=== PATIENT | female | born 1945 | race African-American/Black ===

== ENCOUNTER 2016-12-22 03:21 | Emergency (ER) | payer MEDICARE, OTHER ==
[~2016-12-22] VITALS: Ht 152.4 cm; Wt 56.2 kg
[2016-12-22 03:30] VITALS: BP 153/90
[2016-12-22] MEDS ORDERED: methylPREDNISolone SOD SUCC PF 125 MG/2 ML VIAL. IM ONE (03:45)
[2016-12-22] MEDS ORDERED: predniSONE 20 MG TABLET PO ONE (03:45)
[2016-12-22] MEDS ORDERED: FAMOTIDINE 20 MG TABLET PO ONE (03:45)
--- NOTE | 2016-12-22 03:45 | PHYS DOC ---
General Chief Complaint: allergic reaction Stated Complaint: RASH Time Seen by MD: 03:41 Source: patient Exam Limitations: no limitations (she taking medication at midnight at midnight ) Problems: History of Present Illness Initial Comments Patient is a 71-year-old female who comes to the ED complaining of an itchy red rash. Patient states that at 12:20 AM she thinks she may have taken 3 of her irbesartan 150 mg. After she took it she became concerned that her blood pressure might raise so she ate some noodles with extra salt. 1 hour ago she developed whole body itching and redness but denies new cough hoarseness dyspnea on exertion face or throat swelling. She denies other new exposures and is requesting a quick medication treatment as she intends to work tomorrow. Other than the rash and itching she feels well states she is normally healthy. Timing/Duration: 1 hour Severity: moderate Modifying Factors: improves with cold therapy, worse with medication Associated Symptoms: rash Allergies: Coded Allergies: Penicillins (Verified Allergy, Intermediate, Hives, 12/22/16) amoxicillin (Verified Allergy, Intermediate, Hives, 12/22/16) Past Medical History Medical History: other (bronchitis, hypertension, kidney stones) Surgical History: noncontributory ( section, lithotripsy) Social History Smoker: non-smoker Alcohol: none Drugs: none Review of Systems Constitutional: denies chills, denies diaphoresis, denies fever, denies malaise EENTM: see HPI, denies throat pain, denies throat swelling, denies mouth pain, denies mouth swelling Respiratory: denies cough, denies shortness of breath, denies stridor, denies wheezing Cardiovascular: denies chest pain, denies palpitations, denies syncope Gastrointestinal: denies diarrhea, denies nausea, denies vomiting Musculoskeletal: denies back pain, denies joint swelling, denies neck pain Skin: see HPI Psychiatric/Neurological: denies headache, denies numbness, denies paresthesia Physical Exam General Appearance: WD/WN, no apparent distress Eyes: bilateral eye normal inspection, bilateral eye PERRL, bilateral eye EOMI Ear, Nose, Throat: hearing grossly normal, normal ENT inspection, normal pharynx (no swelling noted airway is intact) Neck: non-tender, supple Respiratory: lungs clear, normal breath sounds, no respiratory distress Cardiovascular: normal peripheral pulses, regular rate, rhythm Back: no CVA tenderness, no vertebral tenderness Extremities: non-tender, normal inspection 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 I discussed close PCP follow-up and possible testing to determine exactly what she is allergic to. Blood pressure remained stable it is unlikely she took 3 of her antihypertensive medications. She requests to be discharged as soon as she is treated states she will come back if she is not improving. Departure Time of Disposition: 03:43 Disposition: HOME, SELF-CARE Diagnosis: allergic rash Condition: STABLE Patient Instructions: Allergy Skin Testing Additional Instructions: Discontinue any new exposures or medication she is taking may be causing her allergic reaction. Recommended that he not work today but stayed home and rest and allow your body to heal and the medications to work. Remain in a cool temperature environment for optimal symptom control. Take [id number] Pepcid 20 mg twice daily as well as Benadryl 25 mg every 6 hours while taking prednisone. Prescription: Prednisone 20 mg one by mouth twice a day #10 Follow-up with your doctor on Saturday for recheck. Return to the ED with new or changing symptoms. SETH GOLDEN DO Dec 22, 2016 03:45
[2016-12-22] MEDS ORDERED: IRBE300T3 PO (03:48)
[2016-12-22] MEDS ORDERED: MULT-98 PO (03:49)
[2016-12-22] MEDS ORDERED: predniSONE 20 MG TABLET ONE (03:51)
[2016-12-22] MEDS ORDERED: FAMOTIDINE 20 MG TABLET ONE (03:51)
[2016-12-22] MEDS ORDERED: methylPREDNISolone SOD SUCC PF 125 MG/2 ML VIAL. ONE (03:52)
== END 2016-12-22 04:03 | disposition home or self-care (01) ==
LOC: ER 03:21
DX: T46.5X5A Adverse effect of other antihypertensive drugs, initial encounter (principal); Z87.442 Personal history of urinary calculi; I10 Essential (primary) hypertension; Z88.0 Allergy status to penicillin; Z88.1 Allergy status to other antibiotic agents; Y92.89 Other specified places as the place of occurrence of the external cause
CPT/HCPCS: 96372; 99283; J2930; J7512

== ENCOUNTER 2021-02-27 22:27 | Inpatient (IN) | payer MEDICARE, OTHER ==
[~2021-02-27] VITALS: Ht 149.9 cm; Wt 56.0 kg
[~2021-02-27 22:27] MED LIST: IRBE300T23 PO; MULT-98 PO
[2021-02-27] MEDS ORDERED: IV NORMAL SALINE 1,000ML 1,000 ML IV ONE (22:45)
[2021-02-27] MEDS ORDERED: ACETAMINOPHEN 500 MG TABLET PO ONE ×2 (22:45→22:46)
[2021-02-27] MEDS ORDERED: IV RINGERS SOLUTION,LACTATED 1,000 ML IV ONE (22:45)
--- NOTE | 2021-02-27 22:59 | PHYS DOC ---
Past History Past Medical History: Bronchitis, Hypertension, Kidney Stones Past Surgical History: , Other Alcohol Use: Rarely Drug Use: None General Adult HPI: HPI: Patient is a 76-year-old female brought in by son for altered mental status. Patient states that she was fine 2 days ago yesterday seem to right and was alert and cognizant but had decreased p.o. intake due to appetite. Denies any cough vomiting or diarrhea. Has a history of sepsis secondary to urinary tract infection. Has a history of a "throat narrowing" and hypertension. Has not had her Covid vaccines. No known sick contacts. Patient had no complaints about any pain or illness. Only more lethargic this evening. Review of Systems: Review of Systems: All other systems within normal limits except for as noted in the HPI Current Medications: Current Meds: Current Medications Medications (Trade) Dose Ordered Sig/Mandi Start Time Stop Time Status Last Admin Dose Admin Acetaminophen (Tylenol) 1,000 mg 1X ONCE 02/27/21 22:45 02/27/21 22:46 UNV Lactated Ringer's 1,000 ml @ 1,000 mls/hr 1X ONCE 02/27/21 22:45 02/27/21 23:44 UNV Sodium Chloride 1,000 ml @ 1,000 mls/hr 1X ONCE 02/27/21 22:45 02/27/21 23:44 UNV Allergies: Allergies: Allergies Coded Allergies Type Severity Reaction Last Updated Verified Penicillins Allergy Intermediate Hives 12/22/16 Yes amoxicillin Allergy Intermediate Hives 12/22/16 Yes Physical Exam: PE: Constitutional: Well developed, well nourished, no acute distress, non-toxic appearance. [] HENT: Normocephalic, atraumatic, bilateral external ears normal, nose normal. [] Eyes: PERRLA, conjunctiva normal, no discharge. [] Neck: No rigidity, supple, no stridor. [] Cardiovascular: Tachycardic, regular rhythm, brisk cap refill [] Lungs & Thorax: Non labored symmetric respirations, no tachypnea or respiratory distress [] Abdomen: Soft, nondistended, no tenderness palpation. Skin: Warm, dry, no erythema, no rash. [] Back: Unremarkable Extremities: No deformities, range of motion grossly intact, no lower extremity edema [] Neurologic: Alert and oriented X 3, no focal deficits noted. [] Psychologic: Affect normal, judgement normal, mood normal. [] EKG: EKG: Sinus tachycardia, heart rate 110 bpm, normal axis, no ST elevation or depression, no ectopy. [] Radiology/Procedures: Radiology/Procedures: [] Radiology first not crossing over but able to print off from the browser. Chest x-ray shows no infiltrates effusion, normal cardiac silhouette. CT head shows no anterior cranial findings mild atrophy with chronic microangiopathic white matter change. CT chest abdomen pelvis with contrast shows pyelonephritis of the right greater than left. No hydronephrosis. Wall thickening of the right transverse colon indicates colitis. Infectious or inflammatory etiology are common in this distribution. Cholelithiasis. Heart Score: C/O Chest Pain: No HEART Score for Chest Pain: HEART Score for Chest Pain Response (Comments) Value History Slighlty/Non-Suspicious 0 ECG Normal 0 Age > 65 2 Risk Factors 1 or 2 Risk Factors 1 Troponin < Normal Limit 0 Total 3 Risk Factors: Risk Factors: DM, Current or recent (<one month) smoker, HTN, HLP, family history of CAD, obesity. Risk Scores: Score 0 - 3: 2.5% MACE over next 6 weeks - Discharge Home Score 4 - 6: 20.3% MACE over next 6 weeks - Admit for Clinical Observation Score 7 - 10: 72.7% MACE over next 6 weeks - Early Invasive Strategies Course & Med Decision Making: Course & Med Decision Making Pertinent Labs and Imaging studies reviewed. (See chart for details) [] Dragon Disclaimer: Dragon Disclaimer: This electronic medical record was generated, in whole or in part, using a voice recognition dictation system. Departure Departure: Impression: Primary Impression: Pyelonephritis Additional Impression: Hypophosphatemia Disposition: ADMITTED INPATIENT Admitting Physician: Tremayne Bettencourt Condition: IMPROVED Referrals: TAVON MCKEON (PCP) ORVILLE MILLER MD Feb 27, 2021 22:59
[2021-02-27 23:16] LABS: BASO # 0.1 x10^3/uL (0.0-0.2); BASO % 1 % (0-3); EOS % 0 % (0-3); HEMATOCRIT 37.8 % (36.0-47.0); LYMPH # 2.5 x10^3/uL (1.0-4.8); LYMPH % 26 % (24-48); MEAN CORPUSCULAR HEMOGLOBIN 32 pg (25-35); MEAN CORPUSCULAR HGB CONC 34 g/dL (31-37); MEAN CORPUSCULAR VOLUME 95 fL (79-100); MONO # 0.3 x10^3/uL (0.0-1.1); MONO % 3 % (0-9); NEUT # 6.7 x10^3uL (1.8-7.7); NEUT % 70 % (31-73); PLATELET COUNT 192 x10^3/uL (140-400); RED BLOOD COUNT 3.99 x10^6/uL (3.50-5.40); RED CELL DISTRIBUTION WIDTH 12.9 % (11.5-14.5); WHITE BLOOD COUNT 9.6 x10^3/uL (4.0-11.0)
[2021-02-27 23:21] LABS: CALCIUM 9.3 mg/dL (8.5-10.1); GFR 65.1; POTASSIUM 3.1 mmol/L (3.5-5.1)
[2021-02-27 23:36] LABS: ALBUMIN 3.2 g/dL (3.4-5.0); ALBUMIN/GLOBULIN RATIO 0.8 (1.0-1.7); MAGNESIUM 1.9 mg/dL (1.8-2.4); PHOSPHORUS 1.4 mg/dL (2.6-4.7); TOTAL PROTEIN 7.3 g/dL (6.4-8.2)
[2021-02-27 23:40] LABS: INFLUENZA A PATIENT NEGATIVE (NEGATIVE); INFLUENZA B PATIENT NEGATIVE (NEGATIVE)
[2021-02-28] MEDS ORDERED: IOHEXOL 300 MG/ML 75 ML VIAL. IV ONE
[2021-02-28] MEDS ORDERED: SODIUM PHOSPHATE 20 MMOL in IV DEXTROSE 5% 250 ML IV ONE
[2021-02-28 00:12] LABS: CLARITY,URINE HAZY; COLOR,URINE ORANGE
[2021-02-28 00:13] LABS: BACTERIA,URINE MANY /HPF (0-FEW); RBC,URINE 0 /HPF (0-2); SQUAMOUS EPITHELIAL CELL,UR OCC /LPF
[2021-02-28] MEDS ORDERED: CONTRAST GIVEN. MC PRN (00:15)
[2021-02-28] MEDS ORDERED: POTASSIUM & SODIUM PHOSPHATES PACKET. PO ONE (01:30)
[2021-02-28] MEDS ORDERED: cefTRIAXone SODIUM 1 GM VIAL ONE (02:24)
[2021-02-28] MEDS ORDERED: IV NORMAL SALINE 50ML 50 ML ONE (02:24)
[2021-02-28] MEDS ORDERED: IV RINGERS SOLUTION,LACTATED 1,000 ML IV ONE (02:45)
[2021-02-28] MEDS ORDERED: ACETAMINOPHEN 325 MG TABLET PO PRN (04:45)
[2021-02-28] MEDS ORDERED: ONDANSETRON PF 4 MG/2 ML VIAL. IVP PRN (04:45)
[2021-02-28] MEDS ORDERED: MORPHINE SULFATE 2 MG/ML DISP.SYRIN. IVP PRN (04:45)
[2021-02-28 07:00] VITALS: BP 92/50
[2021-02-28 11:37] VITALS: BP 154/80
--- NOTE | 2021-02-28 11:45 | NUR ---
ADMISSION Pt admitted today by Dr. Bettencourt. Admission complete. Pt resting comfortably at this time. Bill, pts son, and pt to complete DPOA paperwork with CM. Will continue to monitor. JOSUE RN
[2021-02-28] MEDS: IV NORMAL SALINE 1,000ML 1,000 ML IV SCH (12:15)
--- NOTE | 2021-02-28 14:01 | RAD ---
EXAM: CT OF THE CHEST, ABDOMEN AND PELVIS WITH CONTRAST. HISTORY: Elevated liver enzymes, urinary tract infection, sepsis. TECHNIQUE: Computed tomography of the chest, abdomen and pelvis was performed after the intravenous a dministration of iodinated contrast. One or more of the following individualized dose reduction techn iques were utilized for this examination: 1. Automated exposure control. 2. Adjustment of the mA and/or kV according to patient size. 3. Use of iterative reconstruction technique. COMPARISON: None. FINDINGS: Bone windows reveal no suspicious lesions. There are no pathologically enlarged mediastinal or axillary lymph nodes. There is no pleural or patrice cardial effusion. The heart is not enlarged. There are atherosclerotic calcifications of the coronary arteries. Lung windows reveal no acute infiltrates. There is mild atelectasis or scarring in the left greater t pace right bases. A gallstone is noted. There is no pericholecystic inflammation. The liver, spleen, adrenal glands and pancreas are unremarkable. There are no pathologically enlarged lymph nodes. Hypoperfusion of the right kidney is consistent with pyelonephritis. Similar minimal changes are susp ected on the left. There is urothelial thickening along both ureters and bladder. The bladder is deco mpressed by a Billy catheter. A right renal cyst measures 2.3 cm. A left renal calculus measures 3 mm . A myometrial fibroid on the left measures 1.5 cm. There is wall thickening throughout the right and t ransverse colon. Diffuse colonic diverticulosis is moderate. There is no small bowel obstruction. IMPRESSION: 1. Pyelonephritis on the right greater than left. No hydronephrosis. 2. Wall thickening of the right and transverse colon indicates colitis. Infectious, inflammatory or i schemic etiologies are possible in this distribution. 3. Cholelithiasis. Electronically signed by: Kaya Harrington MD (02/28/2021 1:37 AM) [facility]
--- NOTE | 2021-02-28 14:01 | HP ---
ADMIT DATE: 02/28/2021 ATTENDING PHYSICIAN: Dr. Bettencourt. CHIEF COMPLAINT: Weakness. HISTORY OF PRESENT ILLNESS: The patient is a pleasant 76-year-old female who is admitted through the ED. She has been sick for the last 2 days, a bit confused. Son brought her in. She has had some chills. No COVID vaccine. She has had some hypotension. Workup in the ED showed total body CT scan, which showed evidence of right-sided pyelonephritis. She was started on fluids and antibiotics. By the time I saw her, she was much more alert and talking, not much of an appetite, but she was comfortable. PAST MEDICAL HISTORY: Significant for hypertension, bronchitis, kidney stones and . ALLERGIES: SHE IS ALLERGIC TO PENICILLIN AND AMOXICILLIN, CAUSING RASH. CURRENT MEDICATIONS: Were reviewed. She takes irbesartan 300 mg daily and multivitamin. SOCIAL HISTORY: She is a nonsmoker, nondrinker. FAMILY HISTORY: Her mom lived to age 100. Father at age 75 of heart disease. REVIEW OF SYSTEMS: Significant for the localized symptoms. No fevers, chills, COVID exposure. All other systems reviewed and turned to be negative. PHYSICAL EXAMINATION: GENERAL: When I saw her, this is a pleasant elderly female. INITIAL VITAL SIGNS: Showed a blood pressure of 92/50, pulse is 86 and regular, temperature 99.2 degrees Fahrenheit, oxygen saturation 97% on room air. HEENT: Head is without trauma. Pupils are reactive. Sclerae nonicteric. Oropharynx clear. NECK: Supple, no bruits. LUNGS: Good breath sounds. CARDIOVASCULAR: Shows regular heart tones. No gallop. ABDOMEN: Soft. EXTREMITIES: Show without edema. There is minimal right flank tenderness. NEUROLOGIC: Focally intact. PERTINENT LABORATORY STUDIES: Blood and urine cultures have been drawn and are pending. Hemoglobin 13.0 g/dL with a white count of 9600. Sodium is 132, potassium 3.1 mEq. Transaminases elevated. Cardiac enzymes negative for coronary ischemia. Nonfasting blood sugar 184. ASSESSMENT: 1. A 76-year-old female with acute pyelonephritis. 2. History of hypertension, currently hypotensive. 3. Mild dehydration. PLAN: 1. Admit to the inpatient unit. 2. Intravenous antibiotics have been started. 3. Gentle IV hydration. 4. I have held her blood pressure meds for now. 5. Diet as tolerated. 6. Serial chemistries. 7. Potassium supplementation. BLAYNE DR: Chelita TID: [id number] CC: WILLIAM LEBRON
--- NOTE | 2021-02-28 14:01 | RAD ---
EXAM: CT HEAD WITHOUT CONTRAST. HISTORY: Altered mental status. TECHNIQUE: Computed tomography of the head was performed without intravenous contrast. One or more of the following individualized dose reduction techniques were utilized for this examination: 1. Automated exposure control. 2. Adjustment of the mA and/or kV according to patient size. 3. Use of iterative reconstruction technique. COMPARISON: None. FINDINGS: There is no intracranial hemorrhage. Hypoattenuation within the periventricular white matte r indicates mild chronic microangiopathic change. Prominence of the lateral ventricles and hemispheri c sulci indicates mild atrophy. The visualized paranasal sinuses appear clear. The orbits are unremarkable. The temporal bones are un remarkable. The calvarium reveals no suspicious lesions. IMPRESSION: 1. No acute intracranial findings. Mild atrophy and chronic microangiopathic white matter change. Electronically signed by: Kaya Harrington MD (02/27/2021 11:32 PM) [facility]
--- NOTE | 2021-02-28 14:01 | RAD ---
EXAM: CHEST ONE VIEW. HISTORY: Sepsis. COMPARISON: None. FINDINGS: A frontal view of the chest is obtained. There are no confluent infiltrates. There is no pneumothorax or pleural effusion. The heart is not en larged. There are atherosclerotic calcifications of the aorta. IMPRESSION: 1. No confluent infiltrates. Electronically signed by: Kaya Harrington MD (02/27/2021 11:33 PM) [facility]
--- NOTE | 2021-02-28 14:01 | EKG ---
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
[2021-02-28 15:08] VITALS: BP 101/63
[2021-02-28 19:00] VITALS: BP 114/72
[2021-02-28] MEDS: POTASSIUM CHLORIDE 20 MEQ TABLET.ER. PO SCH (20:45)
[2021-02-28 23:00] VITALS: BP 97/57
[2021-03-01] MEDS: IV NORMAL SALINE 1,000ML 1,000 ML IV SCH ×2 (03:01→16:39)
[2021-03-01 05:45] VITALS: BP 143/107
[2021-03-01 06:13] LABS: BASO % 1 % (0-3); EOS # 0.1 x10^3/uL (0.0-0.7); EOS % 1 % (0-3); HEMATOCRIT 32.2 % (36.0-47.0); HEMOGLOBIN 10.8 g/dL (12.0-15.5); LYMPH # 1.1 x10^3/uL (1.0-4.8); LYMPH % 13 % (24-48); MEAN CORPUSCULAR HEMOGLOBIN 32 pg (25-35); MEAN CORPUSCULAR HGB CONC 34 g/dL (31-37); MEAN CORPUSCULAR VOLUME 96 fL (79-100); MONO # 0.9 x10^3/uL (0.0-1.1); MONO % 10 % (0-9); NEUT # 6.5 x10^3uL (1.8-7.7); NEUT % 76 % (31-73); PLATELET COUNT 159 x10^3/uL (140-400); RED BLOOD COUNT 3.35 x10^6/uL (3.50-5.40); RED CELL DISTRIBUTION WIDTH 13.1 % (11.5-14.5); WHITE BLOOD COUNT 8.6 x10^3/uL (4.0-11.0)
[2021-03-01 06:36] LABS: ALBUMIN 2.2 g/dL (3.4-5.0); ALBUMIN/GLOBULIN RATIO 0.6 (1.0-1.7); CALCIUM 8.5 mg/dL (8.5-10.1); CREATININE 0.8 mg/dL (0.6-1.0); GFR 84.2; POTASSIUM 3.5 mmol/L (3.5-5.1); TOTAL BILIRUBIN 0.6 mg/dL (0.2-1.0); TOTAL PROTEIN 5.8 g/dL (6.4-8.2)
[2021-03-01] MEDS: POTASSIUM CHLORIDE 20 MEQ TABLET.ER. PO SCH ×2 (08:25→20:31)
[2021-03-01 11:00] VITALS: BP 138/98
[2021-03-01 15:00] VITALS: BP 144/92
--- NOTE | 2021-03-01 19:53 | PN ---
DATE: 03/01/2021 ATTENDING PHYSICIAN: Dr. Bettencourt. SUBJECTIVE: The patient is doing well. She is alert. She has no new complaints. She is eating well. No nausea or pain. OBJECTIVE FINDINGS: VITAL SIGNS: Blood pressure this morning is 143/107, pulse is 83 and regular, temperature 99.4 degrees Fahrenheit, oxygen saturation 97% on room air. HEENT: Head is without trauma. Pupils are reactive. Sclerae nonicteric. Oropharynx is clear. NECK: Supple, no bruits identified. LUNGS: Clear. CARDIOVASCULAR: Showed regular heart tones. No gallops. ABDOMEN: Soft. EXTREMITIES: Show no cyanosis or edema. NEUROLOGIC: Focally intact. PERTINENT LABORATORY DATA: Two blood cultures out of 4 bottles were positive for gram-negative rods. I suspect this will be E. coli. ID and sensitivity is pending. Urine culture grew greater than 100,000 colonies of gram-negative rods, which turned out to be E. coli, sensitivity is pending. ASSESSMENT: 1. A 76-year-old female with Escherichia coli pyelonephritis. 2. Essential hypertension. 3. Bacteremia without sepsis syndrome. 4. Altered mentation, resolved. PLAN: 1. Continue Rocephin as ordered. 2. Await ID and sensitivity blood cultures. 3. Gentle IV hydration. 4. I have held her blood pressure meds for now. 5. Diet as tolerated. SALMA/GENEVIEVE DR: SALMA/cecil TID: [id number] CC: WILLIAM LEBRON
[2021-03-01 20:44] VITALS: BP 147/97
[2021-03-02] MEDS: IV NORMAL SALINE 1,000ML 1,000 ML IV SCH ×2 (04:23→17:35)
[2021-03-02 06:16] VITALS: BP 154/87
--- NOTE | 2021-03-02 06:42 | NUR ---
Pt is very pleasant and cooperative. Pt did not sleep at all during the night. Pt requested a sleeping pill for tonight.
[2021-03-02] MEDS: POTASSIUM CHLORIDE 20 MEQ TABLET.ER. PO SCH ×2 (08:17→20:09)
[2021-03-02] MEDS: LACTOBACILLUS RHAMNOSUS GG 1 CAPSULE. PO SCH ×2 (09:00→20:09)
[2021-03-02 10:31] VITALS: BP 133/86
[2021-03-02 12:33] LABS: ALBUMIN 2.4 g/dL (3.4-5.0); ALBUMIN/GLOBULIN RATIO 0.6 (1.0-1.7); CALCIUM 9.2 mg/dL (8.5-10.1); CREATININE 0.7 mg/dL (0.6-1.0); GFR 98.2; POTASSIUM 3.7 mmol/L (3.5-5.1); TOTAL BILIRUBIN 0.4 mg/dL (0.2-1.0); TOTAL PROTEIN 6.4 g/dL (6.4-8.2)
[2021-03-02 15:57] VITALS: BP 156/79
[2021-03-02 20:17] VITALS: BP 148/103
[2021-03-02 22:49] VITALS: BP 154/94
--- NOTE | 2021-03-03 | PN ---
DATE: 03/02/2021 SUBJECTIVE: The patient is a 76-year-old female patient who was admitted through the Emergency Room with confusion, some chills, has had some hypertension. Workup in the Emergency Room with CT scan showed evidence of right-sided pyelonephritis. She was started on fluids, antibiotic. When I saw her today, she was resting slightly propped up in bed, no apparent distress. On questioning her, she denied any complaint and stated that she is feeling generally much improved when I saw her. PHYSICAL EXAMINATION: GENERAL: When I examined her, she was somewhat pale, but no jaundice, cyanosis or thyromegaly. No jugular venous distention. No lower limb edema. VITAL SIGNS: Her heart rate was 68, blood pressure was 133/86, temperature 98.6, respiratory rate was 20 and oxygen saturation was 97% on room air. HEAD, EYES, EARS, NOSE AND THROAT: Normocephalic, atraumatic. NECK: Supple. HEART: Normal first and second heart sounds. No gallop or murmur. CHEST: Clear to auscultation. No crepitation or rhonchi. ABDOMEN: Distended, soft, nontender. There is no tenderness of the costophrenic angle. NEUROLOGIC: She is awake, alert, responding appropriately. Cranial nerves intact. She moves extremities without difficulty. She ambulates without assistance or assistive devices. Her intake over the last 24 hours was 1080, output was 2000. LABORATORY WORK: As of yesterday showed a white cell count of 8.6, hemoglobin 10.8, hematocrit 32, MCV 96 and platelet count of 159,000. Her chemistry showed a serum sodium 140, potassium 3.5, chloride 106, bicarbonate 27, anion gap of 7, BUN 6, creatinine 0.8. Estimated GFR was 84 mL/min. Her glucose 126, calcium was 8.5. Total bilirubin normal. AST, ALT, alkaline phosphatase are elevated. Total protein was 5.8, albumin was 2.2. Urinalysis showed 5-10 wbc's and many bacteria. His urine culture has grown more than 100,000 colony forming units/mL of Gram-negative rods identified as Escherichia coli, sensitive to all antibiotics. Her blood cultures also grew Gram-negative rods. ASSESSMENT: 1. Acute pyelonephritis with growth of Escherichia coli. 2. Hypertension. 3. Altered mental status, resolved. 4. Gram-negative bacteremia. PLAN: To continue with IV Rocephin. Continue with IV fluid. Her urine culture showed growth of Escherichia coli that is sensitive to all cephalosporins. The plan is to continue with IV antibiotic and IV fluid for today. She will be discharged home tomorrow on oral antibiotic. OTONIEL/LINDA DR: Jordyn TID: [id number]
[2021-03-03 06:10] VITALS: BP 139/80
[2021-03-03] MEDS: IV NORMAL SALINE 1,000ML 1,000 ML IV SCH (06:55)
[2021-03-03 07:10] LABS: HEMATOCRIT 33.6 % (36.0-47.0); HEMOGLOBIN 11.3 g/dL (12.0-15.5); RED BLOOD COUNT 3.52 x10^6/uL (3.50-5.40); RED CELL DISTRIBUTION WIDTH 13.3 % (11.5-14.5); WHITE BLOOD COUNT 5.8 x10^3/uL (4.0-11.0)
[2021-03-03 07:30] LABS: ALBUMIN 2.5 g/dL (3.4-5.0); ALBUMIN/GLOBULIN RATIO 0.6 (1.0-1.7); CALCIUM 9.4 mg/dL (8.5-10.1); CREATININE 0.6 mg/dL (0.6-1.0); GFR 117.3; POTASSIUM 3.7 mmol/L (3.5-5.1); TOTAL BILIRUBIN 0.3 mg/dL (0.2-1.0); TOTAL PROTEIN 6.5 g/dL (6.4-8.2)
[2021-03-03] MEDS: LACTOBACILLUS RHAMNOSUS GG 1 CAPSULE. PO SCH (08:12)
[2021-03-03] MEDS: POTASSIUM CHLORIDE 20 MEQ TABLET.ER. PO SCH (08:13)
[2021-03-03 10:30] VITALS: BP 127/83
[2021-03-03] MEDS ORDERED: CEFD300C PO (12:29)
--- NOTE | 2021-03-03 13:06 | DS ---
DATE OF DISCHARGE: 03/03/2021 HOSPITAL COURSE: The patient is resting, slightly propped up in bed, in no apparent respiratory distress. On questioning her, she denied any complaint. Nursing staff did not voice any concerns. Has had a shower today and has been up and about, denied any complaint. PHYSICAL EXAMINATION: GENERAL: When I examined her, she looked well and was clearly in no apparent respiratory distress, pale, not jaundiced, cyanosis or thyromegaly. No jugular venous distention. No limb edema. VITAL SIGNS: Her heart rate was 77, blood pressure was 127/83, temperature was 98.3, respiratory rate was 20 and her oxygen saturation was 97% on room air. HEAD, EYES, EARS, NOSE AND THROAT: Normocephalic, atraumatic. NECK: Supple. HEART: Normal first and second heart sounds. No gallop, rub or murmur. CHEST: Clear to auscultation. No crepitation or rhonchi. ABDOMEN: Distended, soft, nontender. There is no guarding or rigidity. No organomegaly. All hernial orifice intact. Bowel sounds normal. She has no costophrenic angle tenderness. NEUROLOGIC: She is grossly intact. Her intake over the last 24 hours was 1940, output was 2100. LABORATORY DATA: As of this morning, her white cell count was 5800, hemoglobin 11, hematocrit 33, MCV 96 and platelet count 261,000. Her chemistry showed a serum sodium 138, potassium 3.7, chloride 103, bicarbonate 26, anion gap of 9, BUN 5, creatinine 0.6. Estimated GFR was 117 mL per minute. Her glucose was 108, calcium was 9.5. Total bilirubin is normal. Her AST, ALT, alkaline phosphatase are elevated, but trending down. Her total protein was 6.5, albumin was 2.5. Urinalysis was unremarkable. Coronavirus by PCR was negative. Influenza A and B were negative. Her urine culture has grown more than 100,000 colony forming units of gram-negative rods identified as Escherichia coli sensitive to ceftriaxone and all cephalosporins. Her blood culture also has grown more than 100,000 colony forming units of Escherichia coli sensitive to cephalosporins. As the patient remained hemodynamically stable, afebrile with normal white cell count for more than 72 hours, the patient was discharged home to continue on cefdinir 300 mg twice a day for 7 days, irbesartan 150 mg once a day, multivitamin with mineral 1 tablet once a day. FINAL DISCHARGE DIAGNOSES: 1. Altered mental status, resolved. 2. Acute pyelonephritis with growth of Escherichia coli in the urine and blood culture. 3. Hypertension. SHASTA DR: Jordyn TID: [id number]
[2021-03-03] MEDS ORDERED: CEFDINIR 300 MG CAPSULE PO SCH (13:30)
--- NOTE | 2021-03-03 14:24 | NUR ---
Pt ambulated to the door with staff this shift and pts son waiting to pick the pt up. pt given discharge instructions and script to have filled. pt states understanding. pt instructed to follow up with pcp this week and when to seek medical attention/call.
== END 2021-03-03 14:36 | disposition home or self-care (01) | DRG 871 ==
LOC: ER 22:27 → ICU 02-28 06:46 → 1 SOUTH 03-02 05:00
PROVIDERS: ADMIT Hospitalist; ATTEND Hospitalist
DX: A41.9 Sepsis, unspecified organism (principal); G92 Toxic encephalopathy; N10 Acute pyelonephritis; R78.81 Bacteremia; I10 Essential (primary) hypertension; E83.39 Other disorders of phosphorus metabolism; E86.0 Dehydration; B96.20 Unspecified Escherichia coli [E. coli] as the cause of diseases classified elsewhere; B96.89 Other specified bacterial agents as the cause of diseases classified elsewhere; Z87.442 Personal history of urinary calculi; Z88.0 Allergy status to penicillin; Z20.822 Contact with and (suspected) exposure to COVID-19
CPT/HCPCS: 36415; 70450; 71045; 71260; 74177; 80053; 81001; 82803; 83605; 83690; 83735; 83880; 84100; 84484; 85025; 85027; 87015; 87040; 87077; 87086; 87186; 87205; 87804; 93005; 96360; 96361; J0696; J7120; Q9967; U0003; 99285-25; J7030